=== PATIENT | female | born 1945 | race Caucasian/White ===

== ENCOUNTER 2017-04-26 07:19 | Day surgery (SDC) | payer MEDICARE, BC ==
[~2017-04-26] VITALS: Ht 162.6 cm; Wt 79.5 kg
[2017-04-26] MEDS ORDERED: GLUCOPHAGE1000 MG PO (08:22)
[2017-04-26] MEDS ORDERED: GLUCOTROL XL 1010 MG PO (08:23)
[2017-04-26] MEDS ORDERED: Bystolic (08:24)
[2017-04-26] MEDS ORDERED: COZAAR25 MG PO (08:27)
[2017-04-26] MEDS ORDERED: ACTOS30 MG PO (08:28)
[2017-04-26] MEDS ORDERED: JANUVIA100 MG PO (08:29)
[2017-04-26] MEDS ORDERED: CARAFATE1 G PO (08:31)
[2017-04-26] MEDS ORDERED: NEXIUM40 MG PO (08:31)
[2017-04-26 08:45] VITALS: BP 124/51; Ht 162.6 cm; Wt 79.5 kg
[2017-04-26 08:54] LABS: MCH 25.2 pg (26.0-34.0); MCHC 30.3 g/dL (31.0-37.0); MCV 83.1 fL (80.0-100.0); MEAN PLATELET VOLUME 10.6 fL (7.4-10.4); PLATELET COUNT 94 10x3/uL (130-400); RBC 3.97 10x6/uL (4.00-5.40); WBC 3.5 10x3/uL (4.8-10.8)
[2017-04-26 09:05] LABS: CALC OSMOLALITY 279 mosm/kg (275-300); CARBON DIOXIDE 27.1 mmol/L (21.0-32.0); CHLORIDE - SERUM 102 mmol/L (98-107); CREATININE - SERUM 0.8 mg/dL (0.6-1.3); GLUCOSE 140 mg/dL (74-106); POTASSIUM - SERUM 3.8 mmol/L (3.5-5.1); SODIUM 138 mmol/L (136-145); UREA NITROGEN 17 mg/dL (7-18); eGFR NON AFRICAN AMERICAN 75 mL/min (90-120)
[2017-04-26 09:21] LABS: PLATELET ESTIMATE DECREASED
--- NOTE | 2017-04-26 10:10 | NUR ---
PT REC'D TO ROOM VIA STRETCHER. AWAKE, ALERT, ORIENTED. DR. SHIPLEY IN TO SPEAK WITH PT.
--- NOTE | 2017-04-26 10:24 | NUR ---
FULL LIQ DIET PROVIDED.
--- NOTE | 2017-04-26 10:37 | NUR ---
TOLERATING FULL LIQ DIET.
--- NOTE | 2017-04-26 10:43 | NUR ---
TOLERATING DIET WITHOUT PROBLEM. CHEERFUL DEMEANOR.
--- NOTE | 2017-04-26 10:48 | NUR ---
IV D/C'D CATH INTACT.
--- NOTE | 2017-04-26 11:08 | NUR ---
D/C INSTRUCTIONS EXPLAINED TO PT. VOICED UNDERSTANDING. COPIES OF ALL GIVEN TO PT.
--- NOTE | 2017-04-26 11:20 | NUR ---
D/C'D HOME VIA W/C TO PRIVATE CAR.
--- NOTE | 2017-04-29 11:51 | OP ---
PATIENT NAME: BIJU ANDERSON MEDICAL RECORD: [id number] :47 LOCATION:[facility] ADMISSION DATE: SURGEON: SHEKHAR SHIPLEY DO DATE OF OPERATION: 04/26/2017 PROCEDURE: EGD with polypectomy. INDICATIONS FOR PROCEDURE: Anemia, history of esophageal varices and bleeding gastritis. SCOPE: Olympus video gastroscope. MEDICATIONS: Propofol 300 mg IV per anesthesia. ESTIMATED BLOOD LOSS: Less than 3 mL. COMPLICATIONS: None. FINDINGS: Informed consent was given. The patient was made comfortable with the above medication. After reaching an adequate level of sedation by slow IV push, the patient was placed on her left side. The endoscope was then advanced under direct visualization through the mouth to the second portion of the duodenum. The upper third of the esophagus appeared normal. In the middle and lower thirds of the esophagus, there was grade I to grade II esophageal varices without bleeding stigmata. At the GE junction, there was mild evidence of reflux esophagitis. The endoscope was advanced beyond the pylorus into the stomach and retroflexed to view the cardia, where a small sliding hiatal hernia was present. Throughout the entire stomach. There was edema consistent with portal hypertensive gastropathy. There were some sites within the fundus and body of the stomach, some hemorrhoids mucosa associated with portal hypertensive gastritis. There was no active bleeding or stigmata of recent bleeding. In the antrum and prepyloric region, there was a single polypoid lesion which measured approximately 9 mm in size. Polypectomy was performed with hot forceps and cauterization of the mucosa. The endoscope was advanced beyond the pylorus into the duodenum. The entire examined duodenum appeared normal. The endoscope was then withdrawn from the patient. The patient tolerated the procedure well and there were no complications. IMPRESSION: 1. Mild reflux esophagitis. 2. Grade I to grade II esophageal varices without bleeding stigmata. 3. Edema and some hemorrhagic appearing mucosa throughout the fundus and body of the stomach consistent with portal hypertensive gastropathy and gastritis. 4. Gastric polyp located in the antrum and prepyloric region. Polypectomy was performed with hot forceps and cauterization. PLAN AND RECOMMENDATIONS: 1. Discharge home when recovery parameters are met. 2. Follow up biopsy specimen results. 3. Recall EGD will be dependent on results of the polypectomy. If this is an adenomatous polyp, followup will need to be likely within 6 months. If this is just inflammatory tissue, a recall EGD can be performed in 1 year for surveillance of esophageal varices. 4. Follow up lab workup as we are trying now and cover the etiology of her suspected lower fibrosis. I will also need to collect imaging records to see if OPERATIVE REPORT [id number] BIJU ANDERSON a CT of the abdomen has been performed looking for varices and assessing the liver and splenic size. 5. The patient is also pancytopenic and this could be a result of liver fibrosis. Consideration could be given to a bone marrow examination. 6. I would continue the patient's current regimen of Nexium 40 mg daily. Carafate could be discontinued if the patient wishes. TRANSINT:[id number] Voice Confirmation ID: [id number] DOCUMENT ID: [id number] SHEKHAR SHIPLEY DO at 1151 CC: [id number] DICTATION DATE: 04/26/17 0959 COMMERCIAL LOAN ANALYST: 04/26/17 1118 [facility] [place] 04/26/[address] [address]
== END 2017-04-26 11:40 | disposition home or self-care (01) ==
LOC: D.OPS 07:19
PROVIDERS: Anesthesiology
DX: D64.9 Anemia, unspecified (principal); I85.01 Esophageal varices with bleeding; K21.0 Gastro-esophageal reflux disease with esophagitis; K29.70 Gastritis, unspecified, without bleeding; K31.7 Polyp of stomach and duodenum; Z01.812 Encounter for preprocedural laboratory examination

== ENCOUNTER 2018-06-13 05:39 | Day surgery (SDC) | payer MEDICARE, BC ==
[~2018-06-13] VITALS: Ht 162.6 cm; Wt 84.1 kg
[~2018-06-13 05:39] MED LIST: ACTOS30 MG PO; Bystolic; CARAFATE1 G PO; COZAAR25 MG PO; GLUCOPHAGE1000 MG PO; GLUCOTROL XL 1010 MG PO; JANUVIA100 MG PO; NEXIUM40 MG PO
[2018-06-13 06:04] LABS: BASOPHILS 0.6 % (0-2); EOSINOPHILS 3.2 % (0-7); HEMATOCRIT 41.3 % (36.0-48.0); HEMOGLOBIN 13.6 g/dL (12-16); IMMATURE GRANULOCYTES 0.2 % (0-5); LYMPHOCYTES 17.2 % (15-50); MCH 30.7 pg (26.0-34.0); MCHC 32.9 g/dL (31.0-37.0); MCV 93.2 fL (80.0-100.0); MEAN PLATELET VOLUME 11.1 fL (7.4-10.4); MONOCYTES 8.3 % (2-11); NEUTROPHILS 70.5 % (40-80); PLATELET COUNT 94 10x3/uL (130-400); RBC 4.43 10x6/uL (4.00-5.40); RDW 14.6 % (11.5-14.5)
[2018-06-13 06:20] LABS: ANION GAP 13.6 mmol/L (8-16); BILIRUBIN - TOTAL 0.57 mg/dL (0.2-1.3); CALCIUM 9.9 mg/dL (8.5-10.1); CARBON DIOXIDE 30.2 mmol/L (21.0-32.0); CREATININE - SERUM 0.9 mg/dL (0.6-1.3); POTASSIUM - SERUM 3.8 mmol/L (3.5-5.1); PROTEIN - SERUM 8.4 g/dL (6.4-8.2)
[2018-06-13 06:26] LABS: APTT 32.7 SECONDS (22.8-39.4); INR 0.99 (0.85-1.17); PROTIME 12.6 SECONDS (11.6-15.0)
[2018-06-13] MEDS ORDERED: NORVASC10 MG PO (06:55)
[2018-06-13] MEDS ORDERED: NADOLOL40 MG PO (06:57)
[2018-06-13] MEDS ORDERED: SUPER B COMPLE150 MG PO (06:58)
[2018-06-13] MEDS ORDERED: VITAMIN D31000 UNI2 PO (06:58)
[2018-06-13] MEDS ORDERED: FISH OIL 1,0001 CA1 PO (06:58)
[2018-06-13 07:04] VITALS: Ht 162.6 cm; Wt 84.1 kg
--- NOTE | 2018-06-13 08:30 | NUR ---
PT ON NEXIUM. PT TOLD BY DR SHIPLEY TO CONTINUE THAT AND NOT THE OMEPRAZOLE HE INITIALLY ORDERED FOR POST OP.
--- NOTE | 2018-06-13 08:58 | NUR ---
0839 IV DC'D. CATHETER INTACT. PRESSURE HELD. NO BLEEDING AT SITE. BANDAID APPLIED. NO C/O NAUSEA. NO VOMITING. PT CHEERFUL AND STATES SHE FEELS READY TO GO HOME.
--- NOTE | 2018-06-15 13:50 | OP ---
PATIENT NAME: BIJU ANDERSON MEDICAL RECORD: [id number] :47 LOCATION:[facility] ADMISSION DATE: SURGEON: SHEKHAR SHIPLEY DO DATE OF OPERATION: 06/13/2018 PROCEDURE: EGD with biopsies. INDICATIONS FOR PROCEDURE: History of esophageal varices and gastric varices as well as portal hypertension and cirrhosis. SCOPE: Olympus video gastroscope. MEDICATIONS: Propofol 200 mg IV per anesthesia. ESTIMATED BLOOD LOSS: Minimal. COMPLICATIONS: None. FINDINGS: Informed consent was given. The patient was made comfortable with the above medication. After reaching an adequate level of sedation by slow IV push, the patient was placed on her left side. The endoscope was advanced under direct visualization through the mouth to the second portion of the duodenum. The upper esophagus appeared normal. In the middle and distal thirds of the esophagus, there were grade I esophageal varices without bleeding stigmata. At the GE junction, there was evidence of LA class C reflux-induced esophagitis. A single cold forcep biopsy was taken from the GE junction to rule out presence of Small's mucosa. The endoscope was advanced beyond the GE junction into the stomach and retroflexed to view the cardia and fundus, which appeared normal. There were no obvious gastric varices present. Throughout the entire stomach, there was evidence of [id number] portal hypertensive gastropathy. There was evidence of gastritis characterized by erythema and granularity throughout the antrum and prepyloric regions. A few cold forceps biopsies were taken to submit for histopathology and to rule out the presence of H. pylori. The endoscope was advanced into the duodenum. The duodenum appeared normal down to the second portion. The endoscope was then withdrawn from the patient. The patient tolerated the procedure well and there were no complications. IMPRESSION: 1. Grade I esophageal varices without bleeding stigmata. 2. LA class C reflux-induced esophagitis. 3. Portal hypertensive gastropathy. 4. Gastritis. PLAN AND RECOMMENDATIONS: 1. Discharge home when recovery parameters are met. 2. Follow up biopsy specimen results. 3. GERD diet and reflux precautions. 4. Continue current medications. 5. Prescribed PPI at 20 mEq to take indefinitely regarding the reflux and coagulopathy. 6. Recall EGD will be dependent on results of biopsies. For surveillance of esophageal varices, she will need a repeat EGD at least in 1-2 years. TRANSINT:[id number] Voice Confirmation ID: [id number] DOCUMENT ID: [id number] OPERATIVE REPORT [id number] BIJU ANDERSON,SHEKHAR De La Garza DO at 1350 CC: [id number] DICTATION DATE: 06/13/18 0757 WIRE PREPARATION WORKER: 06/13/18 0824 [facility] [place] 06/13/18 [place] [id number] [place] [id number]
== END 2018-06-13 08:57 | disposition home or self-care (01) ==
LOC: D.OPS 05:39
PROVIDERS: Anesthesiology
DX: I10 Essential (primary) hypertension (principal)

== ENCOUNTER → 2020-08-05 08:16 | Outpatient (CLI) | payer MEDICARE, BC ==
[2018-06-13 07:04] VITALS: BMI 31.8
[~2020-08-05 08:16] MED LIST changes: +FISH OIL 1,0001 CA1 PO; +NADOLOL40 MG PO; +NORVASC10 MG PO; +SUPER B COMPLE150 MG PO; +VITAMIN D31000 UNI2 PO
[2020-08-05 09:13] LABS: BASOPHILS 0.7 % (0-2); EOSINOPHILS 1.8 % (0-7); HEMATOCRIT 38.9 % (36.0-48.0); HEMOGLOBIN 12.2 g/dL (12-16); LYMPHOCYTE ABS# 0.43 10x3/uL (1.18-3.74); LYMPHOCYTES 15.6 % (15-50); MCH 28.2 pg (26.0-34.0); MCHC 31.4 g/dL (31.0-37.0); MCV 89.8 fL (80.0-100.0); MEAN PLATELET VOLUME 10.8 fL (7.4-10.4); MONOCYTES 8.4 % (2-11); NEUTROPHIL ABS# 2.02 10x3/uL (1.56-6.13); NEUTROPHILS 73.5 % (40-80); RBC 4.33 10x6/uL (4.00-5.40); RDW 15.1 % (11.5-14.5); WBC 2.8 10x3/uL (4.8-10.8)
[2020-08-05 09:22] LABS: PLATELET COUNT 55 10x3/uL (130-400)
[2020-08-05 09:30] LABS: ALBUMIN 3.9 g/dL (3.4-5.0); BILIRUBIN - DIRECT 0.25 mg/dL (0.00-0.30); BILIRUBIN - INDIRECT 0.59 mg/dL (0.00-1.00); BILIRUBIN - TOTAL 0.84 mg/dL (0.2-1.3); PROTEIN - SERUM 7.9 g/dL (6.4-8.2)
[2020-08-05 09:37] LABS: INR 1.11 (0.85-1.17); PROTIME 13.2 SECONDS (11.6-15.0)
[2020-08-05 11:14] LABS: PLATELET ESTIMATE DECREASED
[2020-08-05 11:17] LABS: ANISOCYTOSIS OCC; ROULEAUX OCC
[2020-08-05 11:18] LABS: POLYCHROMASIA OCC
== END | disposition home or self-care (01) ==
LOC: D.LAB 08:00 → D.US 08:30
PROVIDERS: ATTEND Internal Medicine Gastroenterology
DX: K76.0 Fatty (change of) liver, not elsewhere classified (principal); K74.60 Unspecified cirrhosis of liver